=== PATIENT | female | born 1995 | race Caucasian/White ===

== ENCOUNTER 2017-06-24 18:48 | Emergency (ER) | payer OTHER ==
[~2017-06-24] VITALS: Ht 170.2 cm; Wt 60.9 kg
[2017-06-24 18:54] VITALS: BP 104/73; PULSE 86; RESP 16; TEMP 99.3; O2SAT 100
--- NOTE | 2017-06-24 19:20 | PD ---
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 She states she had some pink tinged spotting today. She also has some mid pelvic pain with nausea and slight vomiting. She states she's had fever for 4 days. She denies any dysuria but does have frequency and urgency. She moved here from [place] about 9 months ago and has no primary care physician. She is requesting an ultrasound. She has not had any abdominal surgery. [facility] Past Medical History ?: LMP: 05/21/17 Social History Tobacco Use: No Allergies-Medications (Allergen,Severity, Reaction): Coded Allergies: Penicillins (Verified Allergy, Unknown, 06/24/17) Reported Meds & Prescriptions Reported Meds & Active Scripts Active No Active Prescriptions or Reported Medications Review of Systems Except as stated in HPI: all other systems reviewed are Neg Physical Exam Narrative GENERAL: The patient is alert, good color, oriented 3 in minimal apparent distress with her pelvic discomfort. Her vital signs are normal. SKIN: Focused skin assessment warm/dry. HEAD: Atraumatic. Normocephalic. EYES: Pupils equal and round. No scleral icterus. No injection or drainage. ENT: No nasal bleeding or discharge. Mucous membranes pink and moist. NECK: Trachea midline. No JVD. CARDIOVASCULAR: Regular rate and rhythm. No murmur appreciated. RESPIRATORY: No accessory muscle use. Clear to auscultation. Breath sounds equal bilaterally. GASTROINTESTINAL: Abdomen soft, non-tender, nondistended. Hepatic and splenic margins not palpable. MUSCULOSKELETAL: No obvious deformities. No clubbing. No cyanosis. No edema. NEUROLOGICAL: Awake and alert. No obvious cranial nerve deficits. Motor grossly within normal limits. Normal speech. PSYCHIATRIC: Appropriate mood and affect; insight and judgment normal. GENITOURINARY: Normal external genitalia without lesions or erythema. Vaginal vault without blood and there is a pure white, [id number] drainage. Cervical os was closed without drainage. No cervical motion tenderness. Uterus nontender and nonenlarged. Bilateral adnexa nontender without masses. Data Data Last Documented VS Vital Signs Date Time Temp Pulse Resp B/P (MAP) Pulse Ox O2 Delivery O2 Flow Rate FiO2 06/24/17 18:54 99.3 86 16 104/73 (83) 100 Orders Orders Beta Hcg (Quant/Titer) (06/24/17 19:10) Complete Blood Count With Diff (06/24/17 19:10) Basic Metabolic Panel (Bmp) (06/24/17 19:10) Us Pelvis (Ques Pr/Ect)W Trans (06/24/17 ) Urinalysis - C+S If Indicated (06/24/17 19:10) Wet Prep Profile (06/24/17 19:21) Labs Laboratory Tests Test 06/24/17 19:15 White Blood Count 8.5 TH/MM3 Red Blood Count 4.45 MIL/MM3 Hemoglobin 13.5 GM/DL Hematocrit 39.7 % Mean Corpuscular Volume 89.1 FL Mean Corpuscular Hemoglobin 30.4 PG Mean Corpuscular Hemoglobin Concent 34.1 % Red Cell Distribution Width 11.8 % Platelet Count 299 TH/MM3 Mean Platelet Volume 7.8 FL Neutrophils (%) (Auto) 60.1 % Lymphocytes (%) (Auto) 25.3 % Monocytes (%) (Auto) 8.5 % Eosinophils (%) (Auto) 5.7 % Basophils (%) (Auto) 0.4 % Neutrophils # (Auto) 5.1 TH/MM3 Lymphocytes # (Auto) 2.2 TH/MM3 Monocytes # (Auto) 0.7 TH/MM3 Eosinophils # (Auto) 0.5 TH/MM3 Basophils # (Auto) 0.0 TH/MM3 CBC Comment DIFF FINAL Differential Comment Urine Collection Type VOIDED Urine Color YELLOW Urine Turbidity CLEAR Urine pH 6.0 Urine Specific [place] 1.025 Urine Protein NEG mg/dL Urine Glucose (UA) NEG mg/dL Urine Ketones TRACE mg/dL Urine Occult Blood NEG Urine Nitrite NEG Urine Bilirubin NEG Urine Leukocyte Esterase NEG Urine WBC 3-5 /hpf Urine Squamous Epithelial Cells >8 /hpf Urine Calcium Oxalate Crystals MANY /hpf Urine Bacteria FEW /hpf Urine Mucus MOD /lpf Microscopic Urinalysis Comment CULT NOT INDICATED Clue Cells (Wet Prep) PRESENT Vaginal Trichomonas (Wet Prep) NONE SEEN Vaginal Yeast (Wet Prep) NONE SEEN Blood Urea Nitrogen 9 MG/DL Creatinine 0.65 MG/DL Random Glucose 79 MG/DL Calcium Level 9.0 MG/DL Sodium Level 139 MEQ/L Potassium Level 4.1 MEQ/L Chloride Level 107 MEQ/L Carbon Dioxide Level 22.0 MEQ/L Anion Gap 10 MEQ/L Estimat Glomerular Filtration Rate 114 ML/MIN Human Chorionic Gonadotropin, Quant 688 MIU/ML [facility] Medical Decision Making Medical Screen Exam Complete: Yes Emergency Medical Condition: Yes Medical Record Reviewed: Yes Interpretation(s) The ultrasound pelvis shows too early to date intrauterine with normal ovaries and no free fluid and no evidence of ectopic . The wet prep is negative for Trichomonas and yeast but is positive for clue cells. The urine shows trace ketones, many calcium oxalate crystals, few bacteria but is otherwise normal and culture is not indicated. The basic metabolic profile is normal. The beta hCG is 688. The CBC is normal. Differential Diagnosis Intrauterine , ectopic , threatened AB, yeast infection, Trichomonas infection, bacterial vaginosis, gastroenteritis, appendicitis Narrative Course The patient has an early intrauterine . Her bacterial vaginosis is minimal, she had no foul smell on examination. At this point I will not treat the bacterial vaginosis. Diagnosis Primary Impression: Intrauterine Additional Instructions: As we discussed, follow-up with the yarn weight and strength tester as soon as possible. Do not drink alcohol and do not smoke. Take [id number] vitamins. Take plain Tylenol for pain. Zofran is given 1 tablet 3 times daily for nausea. Med/Other Pt SpecificInfo: Prescription(s) given Scripts Ondansetron (Zofran) 8 Mg Tab 8 MG PO TID for Nausea/Vomiting, #30 TAB 0 Refills Prov: Phillip Da Silva MD 06/24/17 Disposition: 01 DISCHARGE HOME Condition: Stable Phillip Da Silva MD Jun 24, 2017 19:20
[2017-06-24 19:54] LABS: AUTOMATED NEUTROPHIL # 5.1 TH/MM3 (1.8-7.7); BASOPHIL % 0.4 % (0.0-2.0); EOSINOPHIL # 0.5 TH/MM3 (0-0.4); EOSINOPHIL % 5.7 % (0.0-4.0); HEMATOCRIT 39.7 % (35.0-46.0); HEMO FLAGS DIFF FINAL; LYMPH % 25.3 % (9.0-44.0); LYMPHOCYTE # 2.2 TH/MM3 (1.0-4.8); MEAN CELL VOLUME 89.1 FL (80.0-100.0); MEAN CORPUSCULAR HEMOGLOBIN 30.4 PG (27.0-34.0); MEAN CORPUSCULAR HGB CONC 34.1 % (32.0-36.0); MONO % 8.5 % (0.0-8.0); NEUT % 60.1 % (16.0-70.0); PLATELET COUNT 299 TH/MM3 (150-450); RED BLOOD COUNT 4.45 MIL/MM3 (4.00-5.30); RED CELL DISTRIBUTION WIDTH 11.8 % (11.6-17.2); WHITE BLOOD COUNT 8.5 TH/MM3 (4.0-11.0)
[2017-06-24 20:04] LABS: BLOOD, URINE NEG (NEG); GLUCOSE,URINE NEG (NEG); KETONE, URINE TRACE mg/dL (NEG); NITRITE,URINE NEG (NEG)
[2017-06-24 20:07] LABS: POTASSIUM 4.1 MEQ/L (3.5-5.1)
[2017-06-24 20:43] LABS: METHOD OF COLLECTION VOIDED; MUCUS URINE MOD /lpf (OCC); SQUAMOUS EPITHELIAL CELL URINE >8 /hpf (0-5); URINE COLOR YELLOW (YELLW/STRAW)
[2017-06-24 20:44] LABS: BACTERIA, URINE FEW /hpf; CALCIUM OXALATE CRYSTALS,URINE MANY /hpf; COMMENT (UR) CULT NOT INDICATED; CULTURE IF INDICATED CULT NOT INDICATED
--- NOTE | 2017-06-24 21:19 | RADRPT ---
EXAM DATE/TIME: 06/24/2017 20:50 [place] COMPARISON: No previous studies available for comparison. INDICATIONS : Pelvic pain and spotting with . LAB(S): Beta-hC MEDICAL HISTORY : . Kidney stones. SURGICAL HISTORY : Lithotripsy. ENCOUNTER: Initial ACUITY: 1 day PAIN SCORE: 6/10 LOCATION: Bilateral pelvis MEASUREMENTS: RIGHT OVARY: 2.6 x 1.3 x 2.1 cm UTERUS: 8.6 x 3.9 x 6.1 cm ENDOMETRIAL STRIPE: >20 mm LEFT OVARY: 4.0 x 2.4 x 2.9 cm FREE FLUID: No CROWN RUMP LENGTH: <<Non-visualized FHR: <<Non-visualized>> FINDINGS: UTERUS: 6 x 3 x 2 mm fluid collection seen within the uterine cavity, probably a too early to date gestationa l sac. No perceptible healed sac or pole at this time. RIGHT OVARY: Ovary contains no mass or significant cystic lesion. LEFT OVARY: Ovary contains no mass or significant cystic lesion. MISCELLANEOUS: No free fluid. CONCLUSION: 1. Probable too early to date intrauterine . 2. Normal ovaries and no free fluid. No evidence of ectopic. Rafa Jaramillo MD on June 24, 2017 at 21:15 Board Certified Radiologist. This report was verified electronically.
[2017-06-24] MEDS ORDERED: ZOFR8TAB PO (21:41)
[2017-06-24 21:56] VITALS: BP 106/75
== END 2017-06-24 22:11 | disposition home or self-care (01) ==
LOC: PHED 18:48
DX: O26.891 Other specified pregnancy related conditions, first trimester (principal); R10.2 Pelvic and perineal pain; Z3A.00 Weeks of gestation of pregnancy not specified
CPT/HCPCS: 76700; 76817; 80048; 81001; 84702; 85025; 87210

== ENCOUNTER 2017-08-03 12:31 | Emergency (ER) | payer OTHER ==
[~2017-08-03] VITALS: Ht 170.2 cm; Wt 65.0 kg
[~2017-08-03 12:31] MED LIST: ZOFR8TAB PO
[2017-08-03 12:32] VITALS: BP 134/69; PULSE 98; RESP 12; TEMP 99.3; O2SAT 100
[2017-08-03 13:32] VITALS: BP 111/72; PULSE 85; RESP 16; TEMP 99.1; O2SAT 99
[2017-08-03] MEDS ORDERED: SODIUM CHLOR 0.9% 1000 ML INJ 1,000 ML IV ONE ×2 (13:48)
--- NOTE | 2017-08-03 13:59 | PD ---
HPI Chief Complaint: Flank/Kidney Pain Time Seen by Provider: 13:30 Travel History International Travel<30 days: No Contact w/Intl Traveler<30days: No Traveled to known affect area: No History of Present Illness HPI The patient is a 21-year-old female who presents to the emergency department for left flank pain. The patient is who had a miscarriage in February,, who presents emergency department for left flank pain. The patient denies any vaginal bleeding or vaginal discharge. The patient denies any dysuria, frequency, or urgency. She does complain of mild pelvic discomfort. The patient states she was evaluated in the emergency department in June where she was diagnosed with an IUP, however, is not followed up with an bricklayer tender. The patient recently moved from [place], [place], to the local area does not have a primary physician or bricklayer tender. She has been taking a vitamin daily. She does complain of some nausea and vomiting at night which she attributes to her . She denies any diarrhea or constipation. Symptoms are moderate, possibly exacerbated by , and there are no current alleviating factors. [facility] Past Medical History Medical History: Denies Significant Hx Diminished Hearing: No Kidney Stones: Yes ?: LMP: 05/21/17 Miscarriage: 2 Past Surgical History Surgical History: No Previous Surgery Social History Alcohol Use: No Tobacco Use: No Substance Use: No Allergies-Medications (Allergen,Severity, Reaction): Coded Allergies: Penicillins (Verified Allergy, Unknown, 08/03/17) Reported Meds & Prescriptions Reported Meds & Active Scripts Active No Active Prescriptions or Reported Medications Review of Systems Except as stated in HPI: all other systems reviewed are Neg Gastrointestinal: Positive: Nausea, Vomiting Genitourinary: Positive: Pelvic Pain, Flank Pain, No: Urgency, Frequency, Dysuria, Hematuria, Discharge, Vaginal Bleeding Skin: No Rash Physical Exam Narrative GENERAL: Awake, alert, pleasant 21-year-old female who appears her stated age and is in no acute respiratory distress. SKIN: Focused skin assessment warm/dry. HEAD: Atraumatic. Normocephalic. EYES: Pupils equal and round. No scleral icterus. No injection or drainage. ENT: No nasal bleeding or discharge. Mucous membranes pink and moist. NECK: Trachea midline. No JVD. CARDIOVASCULAR: Regular rate and rhythm. No murmur appreciated. RESPIRATORY: No accessory muscle use. Clear to auscultation. Breath sounds equal bilaterally. GASTROINTESTINAL: Abdomen soft, minimal suprapubic tenderness. No rebound tenderness, guarding, rigidity. Back: No CVA tenderness. Minimal left flank tenderness. MUSCULOSKELETAL: No obvious deformities. No clubbing. No cyanosis. No edema. NEUROLOGICAL: Awake and alert. No obvious cranial nerve deficits. Motor grossly within normal limits. Normal speech. PSYCHIATRIC: Appropriate mood and affect; insight and judgment normal. Data Data Last Documented VS Vital Signs Date Time Temp Pulse Resp B/P (MAP) Pulse Ox O2 Delivery O2 Flow Rate FiO2 08/03/17 13:32 99.1 85 16 111/72 (85) 99 Room Air Orders Orders Complete Blood Count With Diff (08/03/17 13:48) Comprehensive Metabolic Panel (08/03/17 13:48) Urinalysis - C+S If Indicated (08/03/17 13:48) Iv Access Insert/Monitor (08/03/17 13:48) Sodium Chlor 0.9% 1000 Ml Inj (Ns 1000 M (08/03/17 13:48) Ondansetron Inj (Zofran Inj) (08/03/17 14:00) Lipase (08/03/17 13:48) Labs Laboratory Tests Test 08/03/17 13:50 White Blood Count 12.3 TH/MM3 Red Blood Count 4.22 MIL/MM3 Hemoglobin 13.3 GM/DL Hematocrit 38.5 % Mean Corpuscular Volume 91.1 FL Mean Corpuscular Hemoglobin 31.6 PG Mean Corpuscular Hemoglobin Concent 34.7 % Red Cell Distribution Width 13.3 % Platelet Count 345 TH/MM3 Mean Platelet Volume 7.7 FL Neutrophils (%) (Auto) 75.2 % Lymphocytes (%) (Auto) 14.5 % Monocytes (%) (Auto) 8.7 % Eosinophils (%) (Auto) 1.4 % Basophils (%) (Auto) 0.2 % Neutrophils # (Auto) 9.2 TH/MM3 Lymphocytes # (Auto) 1.8 TH/MM3 Monocytes # (Auto) 1.1 TH/MM3 Eosinophils # (Auto) 0.2 TH/MM3 Basophils # (Auto) 0.0 TH/MM3 CBC Comment DIFF FINAL Differential Comment Urine Color YELLOW Urine Turbidity HAZY Urine pH 6.5 Urine Specific [place] 1.018 Urine Protein NEG mg/dL Urine Glucose (UA) NEG mg/dL Urine Ketones NEG mg/dL Urine Occult Blood NEG Urine Nitrite NEG Urine Bilirubin NEG Urine Urobilinogen LESS THAN 2.0 MG/DL Urine Leukocyte Esterase TRACE Urine RBC 1 /hpf Urine WBC 4 /hpf Urine Squamous Epithelial Cells 11 /hpf Urine Amorphous Sediment OCC Urine Bacteria RARE /hpf Urine Mucus FEW /lpf Microscopic Urinalysis Comment CULT NOT INDICATED Blood Urea Nitrogen 8 MG/DL Creatinine 0.58 MG/DL Random Glucose 57 MG/DL Total Protein 7.7 GM/DL Albumin 4.0 GM/DL Calcium Level 8.9 MG/DL Alkaline Phosphatase 44 U/L Aspartate Amino Transf (AST/SGOT) 16 U/L Alanine Aminotransferase (ALT/SGPT) 16 U/L Total Bilirubin 0.4 MG/DL Sodium Level 136 MEQ/L Potassium Level 4.2 MEQ/L Chloride Level 105 MEQ/L Carbon Dioxide Level 25.3 MEQ/L Anion Gap 6 MEQ/L Estimat Glomerular Filtration Rate 130 ML/MIN Lipase 134 U/L MDM Medical Decision Making Medical Screen Exam Complete: Yes Emergency Medical Condition: Yes Medical Record Reviewed: Yes Interpretation(s) Laboratory Tests Test 08/03/17 13:50 White Blood Count 12.3 TH/MM3 Red Blood Count 4.22 MIL/MM3 Hemoglobin 13.3 GM/DL Hematocrit 38.5 % Mean Corpuscular Volume 91.1 FL Mean Corpuscular Hemoglobin 31.6 PG Mean Corpuscular Hemoglobin Concent 34.7 % Red Cell Distribution Width 13.3 % Platelet Count 345 TH/MM3 Mean Platelet Volume 7.7 FL Neutrophils (%) (Auto) 75.2 % Lymphocytes (%) (Auto) 14.5 % Monocytes (%) (Auto) 8.7 % Eosinophils (%) (Auto) 1.4 % Basophils (%) (Auto) 0.2 % Neutrophils # (Auto) 9.2 TH/MM3 Lymphocytes # (Auto) 1.8 TH/MM3 Monocytes # (Auto) 1.1 TH/MM3 Eosinophils # (Auto) 0.2 TH/MM3 Basophils # (Auto) 0.0 TH/MM3 CBC Comment DIFF FINAL Differential Comment Urine Color YELLOW Urine Turbidity HAZY Urine pH 6.5 Urine Specific [place] 1.018 Urine Protein NEG mg/dL Urine Glucose (UA) NEG mg/dL Urine Ketones NEG mg/dL Urine Occult Blood NEG Urine Nitrite NEG Urine Bilirubin NEG Urine Urobilinogen LESS THAN 2.0 MG/DL Urine Leukocyte Esterase TRACE Urine RBC 1 /hpf Urine WBC 4 /hpf Urine Squamous Epithelial Cells 11 /hpf Urine Amorphous Sediment OCC Urine Bacteria RARE /hpf Urine Mucus FEW /lpf Microscopic Urinalysis Comment CULT NOT INDICATED Blood Urea Nitrogen 8 MG/DL Creatinine 0.58 MG/DL Random Glucose 57 MG/DL Total Protein 7.7 GM/DL Albumin 4.0 GM/DL Calcium Level 8.9 MG/DL Alkaline Phosphatase 44 U/L Aspartate Amino Transf (AST/SGOT) 16 U/L Alanine Aminotransferase (ALT/SGPT) 16 U/L Total Bilirubin 0.4 MG/DL Sodium Level 136 MEQ/L Potassium Level 4.2 MEQ/L Chloride Level 105 MEQ/L Carbon Dioxide Level 25.3 MEQ/L Anion Gap 6 MEQ/L Estimat Glomerular Filtration Rate 130 ML/MIN Lipase 134 U/L Differential Diagnosis Differential diagnosis includes UTI, , ectopic , PID, cervicitis, vaginitis, ovarian cyst. Narrative Course A bedside ultrasound was performed which reveals an IUP with positive heart tones and movement. The patient was shown the ultrasound as it was performed real-time. UA was sent to lab. IV was established and the patient was administered Zofran and IV fluids. The patient denies any vaginal bleeding or vaginal discharge, pelvic exam was deferred. The patient's BUN and creatinine are normal, glucose was minimally low at 57, otherwise labs are unremarkable. UA reveals no evidence of underlying infection. Patient has mild pelvic discomfort and left flank pain but no evidence of infection. She is advised to follow-up with her bricklayer tender. She will be prescribed Phenergan as needed for nausea/vomiting, I did discuss that this is a category C medication with her. She states Zofran was too expensive. Procedures Procedure Narrative A bedside ultrasound was performed using a curvilinear probe which revealed an IUP with positive heart tones and movement. The patient tolerated the procedure without difficulty. There was no obvious complications. Diagnosis Primary Impression: Nausea/vomiting in Additional Impression: Flank pain Patient Instructions: General Instructions Additional Instructions: Medications as directed. Plenty fluids to stay hydrated. Follow-up with her bricklayer tender. Continue vitamin as previously directed. Med/Other Pt SpecificInfo: Prescription(s) given Scripts Promethazine (Phenergan) 25 Mg Tablet 25 MG PO Q6H Y for NAUSEA OR VOMITING, #20 TAB 0 Refills Prov: Papi Arellano MD 08/03/17 Disposition: 01 DISCHARGE HOME Condition: Stable Papi Arellano MD Aug 03, 2017 13:59
--- NOTE | 2017-08-03 13:59 | PD ---
HPI Chief Complaint: Flank/Kidney Pain Time Seen by Provider: 13:30 Travel History International Travel<30 days: No Contact w/Intl Traveler<30days: No Traveled to known affect area: No History of Present Illness HPI The patient is a 21-year-old female who presents to the emergency department for left flank pain. The patient is who had a miscarriage in February,, who presents emergency department for left flank pain. The patient denies any vaginal bleeding or vaginal discharge. The patient denies any dysuria, frequency, or urgency. She does complain of mild pelvic discomfort. The patient states she was evaluated in the emergency department in June where she was diagnosed with an IUP, however, is not followed up with an gas burner operator. The patient recently moved from [place], [place], to the local area does not have a primary physician or gas burner operator. She has been taking a vitamin daily. She does complain of some nausea and vomiting at night which she attributes to her . She denies any diarrhea or constipation. Symptoms are moderate, possibly exacerbated by , and there are no current alleviating factors. [facility] Past Medical History Medical History: Denies Significant Hx Diminished Hearing: No Kidney Stones: Yes ?: LMP: 05/21/17 Miscarriage: 2 Past Surgical History Surgical History: No Previous Surgery Social History Alcohol Use: No Tobacco Use: No Substance Use: No Allergies-Medications (Allergen,Severity, Reaction): Coded Allergies: Penicillins (Verified Allergy, Unknown, 08/03/17) Reported Meds & Prescriptions Reported Meds & Active Scripts Active No Active Prescriptions or Reported Medications Review of Systems Except as stated in HPI: all other systems reviewed are Neg Gastrointestinal: Positive: Nausea, Vomiting Genitourinary: Positive: Pelvic Pain, Flank Pain, No: Urgency, Frequency, Dysuria, Hematuria, Discharge, Vaginal Bleeding Skin: No Rash Physical Exam Narrative GENERAL: Awake, alert, pleasant 21-year-old female who appears her stated age and is in no acute respiratory distress. SKIN: Focused skin assessment warm/dry. HEAD: Atraumatic. Normocephalic. EYES: Pupils equal and round. No scleral icterus. No injection or drainage. ENT: No nasal bleeding or discharge. Mucous membranes pink and moist. NECK: Trachea midline. No JVD. CARDIOVASCULAR: Regular rate and rhythm. No murmur appreciated. RESPIRATORY: No accessory muscle use. Clear to auscultation. Breath sounds equal bilaterally. GASTROINTESTINAL: Abdomen soft, minimal suprapubic tenderness. No rebound tenderness, guarding, rigidity. Back: No CVA tenderness. Minimal left flank tenderness. MUSCULOSKELETAL: No obvious deformities. No clubbing. No cyanosis. No edema. NEUROLOGICAL: Awake and alert. No obvious cranial nerve deficits. Motor grossly within normal limits. Normal speech. PSYCHIATRIC: Appropriate mood and affect; insight and judgment normal. Data Data Last Documented VS Vital Signs Date Time Temp Pulse Resp B/P (MAP) Pulse Ox O2 Delivery O2 Flow Rate FiO2 08/03/17 13:32 99.1 85 16 111/72 (85) 99 Room Air Orders Orders Complete Blood Count With Diff (08/03/17 13:48) Comprehensive Metabolic Panel (08/03/17 13:48) Urinalysis - C+S If Indicated (08/03/17 13:48) Iv Access Insert/Monitor (08/03/17 13:48) Sodium Chlor 0.9% 1000 Ml Inj (Ns 1000 M (08/03/17 13:48) Ondansetron Inj (Zofran Inj) (08/03/17 14:00) Lipase (08/03/17 13:48) Labs Laboratory Tests Test 08/03/17 13:50 White Blood Count 12.3 TH/MM3 Red Blood Count 4.22 MIL/MM3 Hemoglobin 13.3 GM/DL Hematocrit 38.5 % Mean Corpuscular Volume 91.1 FL Mean Corpuscular Hemoglobin 31.6 PG Mean Corpuscular Hemoglobin Concent 34.7 % Red Cell Distribution Width 13.3 % Platelet Count 345 TH/MM3 Mean Platelet Volume 7.7 FL Neutrophils (%) (Auto) 75.2 % Lymphocytes (%) (Auto) 14.5 % Monocytes (%) (Auto) 8.7 % Eosinophils (%) (Auto) 1.4 % Basophils (%) (Auto) 0.2 % Neutrophils # (Auto) 9.2 TH/MM3 Lymphocytes # (Auto) 1.8 TH/MM3 Monocytes # (Auto) 1.1 TH/MM3 Eosinophils # (Auto) 0.2 TH/MM3 Basophils # (Auto) 0.0 TH/MM3 CBC Comment DIFF FINAL Differential Comment Urine Color YELLOW Urine Turbidity HAZY Urine pH 6.5 Urine Specific [place] 1.018 Urine Protein NEG mg/dL Urine Glucose (UA) NEG mg/dL Urine Ketones NEG mg/dL Urine Occult Blood NEG Urine Nitrite NEG Urine Bilirubin NEG Urine Urobilinogen LESS THAN 2.0 MG/DL Urine Leukocyte Esterase TRACE Urine RBC 1 /hpf Urine WBC 4 /hpf Urine Squamous Epithelial Cells 11 /hpf Urine Amorphous Sediment OCC Urine Bacteria RARE /hpf Urine Mucus FEW /lpf Microscopic Urinalysis Comment CULT NOT INDICATED Blood Urea Nitrogen 8 MG/DL Creatinine 0.58 MG/DL Random Glucose 57 MG/DL Total Protein 7.7 GM/DL Albumin 4.0 GM/DL Calcium Level 8.9 MG/DL Alkaline Phosphatase 44 U/L Aspartate Amino Transf (AST/SGOT) 16 U/L Alanine Aminotransferase (ALT/SGPT) 16 U/L Total Bilirubin 0.4 MG/DL Sodium Level 136 MEQ/L Potassium Level 4.2 MEQ/L Chloride Level 105 MEQ/L Carbon Dioxide Level 25.3 MEQ/L Anion Gap 6 MEQ/L Estimat Glomerular Filtration Rate 130 ML/MIN Lipase 134 U/L MDM Medical Decision Making Medical Screen Exam Complete: Yes Emergency Medical Condition: Yes Medical Record Reviewed: Yes Interpretation(s) Laboratory Tests Test 08/03/17 13:50 White Blood Count 12.3 TH/MM3 Red Blood Count 4.22 MIL/MM3 Hemoglobin 13.3 GM/DL Hematocrit 38.5 % Mean Corpuscular Volume 91.1 FL Mean Corpuscular Hemoglobin 31.6 PG Mean Corpuscular Hemoglobin Concent 34.7 % Red Cell Distribution Width 13.3 % Platelet Count 345 TH/MM3 Mean Platelet Volume 7.7 FL Neutrophils (%) (Auto) 75.2 % Lymphocytes (%) (Auto) 14.5 % Monocytes (%) (Auto) 8.7 % Eosinophils (%) (Auto) 1.4 % Basophils (%) (Auto) 0.2 % Neutrophils # (Auto) 9.2 TH/MM3 Lymphocytes # (Auto) 1.8 TH/MM3 Monocytes # (Auto) 1.1 TH/MM3 Eosinophils # (Auto) 0.2 TH/MM3 Basophils # (Auto) 0.0 TH/MM3 CBC Comment DIFF FINAL Differential Comment Urine Color YELLOW Urine Turbidity HAZY Urine pH 6.5 Urine Specific [place] 1.018 Urine Protein NEG mg/dL Urine Glucose (UA) NEG mg/dL Urine Ketones NEG mg/dL Urine Occult Blood NEG Urine Nitrite NEG Urine Bilirubin NEG Urine Urobilinogen LESS THAN 2.0 MG/DL Urine Leukocyte Esterase TRACE Urine RBC 1 /hpf Urine WBC 4 /hpf Urine Squamous Epithelial Cells 11 /hpf Urine Amorphous Sediment OCC Urine Bacteria RARE /hpf Urine Mucus FEW /lpf Microscopic Urinalysis Comment CULT NOT INDICATED Blood Urea Nitrogen 8 MG/DL Creatinine 0.58 MG/DL Random Glucose 57 MG/DL Total Protein 7.7 GM/DL Albumin 4.0 GM/DL Calcium Level 8.9 MG/DL Alkaline Phosphatase 44 U/L Aspartate Amino Transf (AST/SGOT) 16 U/L Alanine Aminotransferase (ALT/SGPT) 16 U/L Total Bilirubin 0.4 MG/DL Sodium Level 136 MEQ/L Potassium Level 4.2 MEQ/L Chloride Level 105 MEQ/L Carbon Dioxide Level 25.3 MEQ/L Anion Gap 6 MEQ/L Estimat Glomerular Filtration Rate 130 ML/MIN Lipase 134 U/L Differential Diagnosis Differential diagnosis includes UTI, , ectopic , PID, cervicitis, vaginitis, ovarian cyst. Narrative Course A bedside ultrasound was performed which reveals an IUP with positive heart tones and movement. The patient was shown the ultrasound as it was performed real-time. UA was sent to lab. IV was established and the patient was administered Zofran and IV fluids. The patient denies any vaginal bleeding or vaginal discharge, pelvic exam was deferred. The patient's BUN and creatinine are normal, glucose was minimally low at 57, otherwise labs are unremarkable. UA reveals no evidence of underlying infection. Patient has mild pelvic discomfort and left flank pain but no evidence of infection. She is advised to follow-up with her gas burner operator. She will be prescribed Phenergan as needed for nausea/vomiting, I did discuss that this is a category C medication with her. She states Zofran was too expensive. Procedures Procedure Narrative A bedside ultrasound was performed using a curvilinear probe which revealed an IUP with positive heart tones and movement. The patient tolerated the procedure without difficulty. There was no obvious complications. Diagnosis Primary Impression: Nausea/vomiting in Additional Impression: Flank pain Patient Instructions: General Instructions Additional Instructions: Medications as directed. Plenty fluids to stay hydrated. Follow-up with her gas burner operator. Continue vitamin as previously directed. Med/Other Pt SpecificInfo: Prescription(s) given Scripts Promethazine (Phenergan) 25 Mg Tablet 25 MG PO Q6H Y for NAUSEA OR VOMITING, #20 TAB 0 Refills Prov: Papi Arellano MD 08/03/17 Disposition: 01 DISCHARGE HOME Condition: Stable Papi Arellano MD Aug 03, 2017 13:59
[2017-08-03] MEDS ORDERED: ONDANSETRON HCL 4 MG/2 ML VIAL IVP ONE ×2 (14:00)
[2017-08-03 14:13] LABS: AUTOMATED NEUTROPHIL # 9.2 TH/MM3 (1.8-7.7); BASOPHIL % 0.2 % (0.0-2.0); EOSINOPHIL # 0.2 TH/MM3 (0-0.4); EOSINOPHIL % 1.4 % (0.0-4.0); HEMATOCRIT 38.5 % (35.0-46.0); HEMOGLOBIN 13.3 GM/DL (11.6-15.3); LYMPH % 14.5 % (9.0-44.0); LYMPHOCYTE # 1.8 TH/MM3 (1.0-4.8); MEAN CELL VOLUME 91.1 FL (80.0-100.0); MEAN CORPUSCULAR HEMOGLOBIN 31.6 PG (27.0-34.0); MEAN CORPUSCULAR HGB CONC 34.7 % (32.0-36.0); MEAN PLATELET VOLUME 7.7 FL (7.0-11.0); MONO % 8.7 % (0.0-8.0); MONOCYTE # 1.1 TH/MM3 (0-0.9); NEUT % 75.2 % (16.0-70.0); PLATELET COUNT 345 TH/MM3 (150-450); RED BLOOD COUNT 4.22 MIL/MM3 (4.00-5.30); RED CELL DISTRIBUTION WIDTH 13.3 % (11.6-17.2); WHITE BLOOD COUNT 12.3 TH/MM3 (4.0-11.0)
[2017-08-03 14:23] LABS: AMORPHOUS SEDIMENT, URINE OCC; BACTERIA, URINE RARE /hpf; BILIRUBIN, URINE NEG (NEG); BLOOD, URINE NEG (NEG); GLUCOSE,URINE NEG (NEG); KETONE, URINE NEG (NEG); MUCUS URINE FEW /lpf (OCC); NITRITE,URINE NEG (NEG); PH, URINE 6.5 (5.0-8.5); SQUAMOUS EPITHELIAL CELL URINE 11 /hpf (0-5); URINE COLOR YELLOW (YELLW/STRAW); URINE LEUKOCYTE ESTERASE TRACE (NEG)
[2017-08-03 14:40] LABS: ALT (GPT) 16 U/L (10-53); AST (GOT) 16 U/L (15-37); BICARBONATE 25.3 MEQ/L (21.0-32.0); BLOOD UREA NITROGEN 8 MG/DL (7-18); CALCIUM 8.9 MG/DL (8.5-10.1); CHLORIDE 105 MEQ/L (98-107); CREATININE 0.58 MG/DL (0.50-1.00); GLOMERULAR FILTRATION RATE 130 ML/MIN (>89); GLUCOSE,RANDOM 57 MG/DL (74-106); LIPASE 134 U/L (73-393); SODIUM (NA) 136 MEQ/L (136-145)
[2017-08-03 14:43] LABS: ALKALINE PHOSPHATASE 44 U/L (45-117); TOTAL BILIRUBIN ADULT 0.4 MG/DL (0.2-1.0); TOTAL PROTEIN 7.7 GM/DL (6.4-8.2)
[2017-08-03] MEDS ORDERED: PROM25TA10 PO ×2 (14:58)
== END 2017-08-03 15:25 | disposition home or self-care (01) ==
LOC: NEPC 12:31
DX: O21.9 Vomiting of pregnancy, unspecified (principal); R10.9 Unspecified abdominal pain; R11.2 Nausea with vomiting, unspecified; Z88.0 Allergy status to penicillin
CPT/HCPCS: 80053; 81001; 83690; 85025; 96361; 96374; 99285; J2405; J7030